=== PATIENT | female | born 1970 | race Caucasian/White ===

== ENCOUNTER → 2020-12-30 14:12 | Outpatient (CLI) | payer SELFPAY ==
[2020-12-30 15:22] LABS: Hematocrit 39.3 % (37-47); Hemoglobin 13.1 g/dL (12.0-15.0); Mean Corp Hgb Conc 33.3 g/dL (32-36); Mean Corpuscular Hgb 28.5 pg (27.0-32.0); Mean Corpuscular Volume 85.6 fL (81-99); Mean Platelet Vol. 9.3 fl (6.2-12.0); Platelet Count 332 K/mm3 (150-450); RBC Distribution Width CV 11.9 % (11.6-14.6); RBC Distribution Width SD 37.4 fl (35.1-43.9); Red Blood Count 4.59 M/mm3 (4.2-5.4); White Blood Count 8.2 K/mm3 (4.4-11.0)
[2020-12-30 15:43] LABS: T4 Free Direct 0.78 ng/dL (0.76-1.46); Thyroid Stim Hormone (TSH) 2.79 uIU/mL (0.358-3.74)
[2021-01-05 21:44] LABS: HPV APTIMA, High Risk Negative (Negative)
== END ==
PROVIDERS: Visit Provider Student in an Organized Health Care Education/Training Program
DX: N93.9 Abnormal uterine and vaginal bleeding, unspecified (principal); Z12.4 Encounter for screening for malignant neoplasm of cervix
CPT/HCPCS: 36415; 84439; 84443; 85027; 87624; 88175; G0145

== ENCOUNTER → 2021-02-06 12:28 | Outpatient (CLI) | payer SELFPAY ==
--- NOTE | 2021-02-06 | EMB_PTH ---
PATIENT: DERIK NEWSOME LOC: [facility] U#:[id number] AGE/SX: 54/F ROOM: RE02/06/[address]: Dr. Kelly Maciel, : 1970 BED: DIS: SPEC #: [id number] RECD: 02/06/21 13:52 STATUS: BRYANT HOMAR #: [id number] RACHEL: 02/06/21 00:[address]: Kelly Maciel DEPT: SURGICAL PATHOLOGY RECD BY: Claudy Sheehan Tissues: Endometrium, NOS Procedures: Surgery Specimen Level IV HEADER OPERATION: Endometrial biopsy PRE-OP DIAGNOSIS: N93.9 TISSUE SUBMITTED: Endometrial biopsy MICROSCOPIC DIAGNOSIS Endometrium, biopsy: Perimenstrual endometrium with glandular and stromal breakdown. AM:viet 02/07/2021 MICROSCOPIC DESCRIPTION Slides are reviewed. GROSS DESCRIPTION Received in fixative is one container labeled with the patient's name and designated endometrial biopsy. The specimen consists of multiple irregular and elongated fragments of red-aparicio soft tissue that in aggregate measure 2 x 2 x 0.2 cm. The specimen is totally submitted in one cassette. / AM:viet 02/06/21 TC:5 CPT: 36265
== END ==
PROVIDERS: Visit Provider Student in an Organized Health Care Education/Training Program
DX: N93.9 Abnormal uterine and vaginal bleeding, unspecified (principal)
CPT/HCPCS: 88305

== ENCOUNTER 2023-06-13 05:27 | Day surgery (SDC) | payer SELFPAY ==
--- NOTE | 2023-06-03 14:32 | PCM.HP.BLA ---
History and Physical Date of Admission: 06/13/23 ? HPI: The patient is a 52 year old female presenting for pre-operative visit. She is scheduled for LAVH with bilateral salpingectomy, for metromenorrhagia and intramural uterine fibroid on 06/13/23. Procedure discussed along with risks, benefits and complications. Other alternatives discussed for management. Consent form signed? Yes. ? ? PAST MEDICAL HISTORY PAST MEDICAL HISTORY Diagnosis Date ? 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 MVP (mitral valve prolapse) 02/25/2013 ? PTSD (post-traumatic stress disorder) ? ? Pulmonary hypertension (HCC) 02/25/2013 ? Uterine fibroid ? ? Uterine mass ? ? ? PAST SURGICAL HISTORY PAST SURGICAL HISTORY Procedure Laterality Date ? LIG/TRNSXJ FLP TUBE ABDL/VAG APPR UNI/BI ? 02/18/2011 ? Tubal ligation ? TONSILLECTOMY & ADENOIDECTOMY <AGE 14 ? CURRENT MEDICATIONS Current Outpatient Medications Medication Sig Dispense Refill ? megestrol (MEGACE) 40 mg tablet Take 40 mg by mouth as needed. ? ? ? buPROPion XL (WELLBUTRIN XL) 150 mg 24 hr tablet Take 150 mg by mouth once daily. ? ? ? FLUoxetine (PROZAC) 20 mg capsule Take 20 mg by mouth once daily. ? ? ? hydrOXYzine pamoate (VISTARIL) 25 mg capsule take 1 to 2 capsules by mouth at bedtime if needed ? ? ? prazosin (MINIPRESS) 1 mg cap Take 1 mg by mouth daily at bedtime. ? ? ? metoprolol succinate ER (TOPROL XL) 50 mg 24 hr tablet Take 1 tablet by mouth once daily. 90 tablet 3 ? No current facility-administered medications for this visit. ? ? ALLERGIES: Erythromycin and Penicillins ? PERSONAL HISTORY: SOCIAL HISTORY Social History ? Tobacco Use ? Smoking status: Never ? ? Passive exposure: Never ? Smokeless tobacco: Never Vaping Use ? Vaping Use: Never used Substance Use Topics ? Alcohol use: No ? Drug use: No ? FAMILY HISTORY: FAMILY HISTORY FAMILY HISTORY Problem Relation Age of Onset ? Heart Mother ? ? Living - age 68 - h/o MVP ? None Father ? ? Living - age 68 ? Heart Sister ? ? Two sisters with a history of palpitations ? None Sister ? ? Three healthy sisters ? None Brother ? ? Living - age 41 ? Seizures Brother ? ? Living - age 37 ? None Daughter ? ? 4 healthy daughters ? None Son ? ? 5 healthy sons ? ? REVIEW OF SYMPTOMS: GENERAL: denies fevers or chills ENDOCRINOLOGY: has not been on steroids Cardiology : denies palpitations or chest pain Respiratory: denies SOB or cough Hematology: denies history of prolonged bleeding or easy bruising or VTE Allergy: Denies history of personal or family history of allergy to anesthesia ? PHYSICAL EXAMINATION: ? VITALS: Last menstrual period 04/29/2023. ? GENERAL: The patient is well nourished, well hydrated in no acute distress. , The patient is oriented to time, place, and person. NECK: Supple. No lynphadenopathy, normal thyroid, no thyromegaly. LUNGS: Clear to auscultation bilaterally. no wheezes, rhonchi or rales HEART: Regular rate and rhythm, Normal heart sounds, and No murmurs or gallops ? PELVIC US done : Uterus Uterus: Visualized Uterus position: anteverted Uterus length 104 mm Uterus width 80 mm Uterus height 59 mm Uterus Vol 256.4 cm? Endometrial thickness, total 13.2 mm Uterine fibroid D1 45 mm Uterine fibroid D2 39 mm Uterine fibroid D3 37 mm Uterine fibroid mean 40.3 mm Uterine fibroid vol 34.000 cm? Uterine fibroids findings: Fundal Right Ovary Rt ovary: Not visualized Left Ovary Lt ovary: Visualized Lt ovary D1 22 mm Lt ovary D2 19 mm Lt ovary D3 20 mm Lt ovary Vol 4.4 cm? ? Pap smear up to date and EMB and pelvic US done at Dr. Trinity Villar's office 03/2023 ? IMPRESSION: metromenorrhagia, intramural uterine fibroid, dysmenorrhea ? PLAN: The risks/benefits/alternatives and personal involved for the planned LAVH with bilateral salpingectomy were reviewed with the patient. Her questions were answered to her satisfaction and she desires to proceed. Consent was signed. I reviewed with her postop instructions and expectations. ? ? I have reviewed and updated past medical and surgical history, medications and allergies Assessment & Plan Assessment/Plan (1) Menorrhagia with irregular cycle: (2) Intramural uterine fibroid: (3) Dysmenorrhea:
[2023-06-13] VITALS (16 sets, daily range): BP systolic 94–128; BP diastolic 50–79; PULSE 68–94; RESP 14–18; TEMP 36.4–37.2; O2SAT 93–99; BMI 41.8
--- NOTE | 2023-06-13 | HYST_PTH ---
PATIENT: DERIK NEWSOME LOC: [facility] [place] U#:[id number] AGE/SX: 52/F ROOM: RE06/13/[address]: Dr. Kathryn Hess MD : 1970 BED: DIS: 06/13/2023 SPEC #: [id number] RECD: 06/13/23 13:46 STATUS: BRYANT REGilbert #: [id number] RACHEL: 06/13/23 00:[address]: Kathryn Hess DEPT: SURGICAL PATHOLOGY RECD BY: Claudy Sheehan ENTERED: 06/13/23 13:46 SP TYPE: HYSTERECT OTHR DR: Chantel Castillo, MOBILE BATTERY TECHNICIAN-C Tissues: Uterus, NOS Procedures: Surgery Specimen Level V HEADER OPERATION: ERAS, hysterectomy, LAVH, bilateral salpingectomy PRE-OP DIAGNOSIS: Menorrhagia with irregular cycle, intermural uterine fibroid, dysmenorrhea TISSUE SUBMITTED: Uterus, cervix, bilateral fallopian tubes MICROSCOPIC DIAGNOSIS Uterus, cervix and bilateral fallopian tubes, hysterectomy and bilateral salpingectomy: Cervix - Chronic cystic cervicitis Endometrium - Proliferative endometrium Myometrium - Intramural and submucosal leiomyomas (0.7 and 5.0cm in diameter.) - Adenomyosis. Bilateral fallopian tubes- no pathologic diagnosis. DOLORES/ 06/14/2023 MICROSCOPIC DESCRIPTION Slides are reviewed. GROSS DESCRIPTION Received in fixative is one container labeled with the patient's name and designated uterus, cervix, bilateral fallopian tubes. The specimen consists of a hysterectomy specimen consisting of uterus with cervix and detached bilateral fallopian tubes. The uterus with cervix weighs 322 gm and measures 14.0 x 10.0 x 6.0 cm. The serosal surface is aparicio glistening. The ectocervical mucosa is unremarkable. The external os is oval and patulous in contour. The endocervical canal measures 4.0 cm in length and the endocervical mucosa aparicio glistening and unremarkable. Endometrial cavity is compressed to one side due to the presents of intramural to submucosal nodular mass and 7.0 cm in length and 2.5 cm in width. The endometrium is aparicio glistening and congested and hemorrhagic without any mass lesions and measures 0.1 cm in thickness. Sections of the uterine wall reveal two nodular masses, larger one intramural to submucosal in location measuring 5.0cm in diameter. Second mass is intramural in location and measures 0.7cm in diameter. Sections of these masses reveal aparicio whorled cut surfaces without areas of hemorrhage, necrosis or cystic degeneration. The uterine wall measures up to 3.0cm in thickness. Fallopian tubes are not identified as right or left and measures 4.0cm in length and 0.6cm in diameter and 5.0cm in length and 0.5cm in diameter. Sections reveal unremarkable cut surfaces. Pricing/Signage Team Member sections are submitted in 11 cassettes as follows: 1 - anterior cervix, 2 - posterior cervix, 3 & 4 - anterior uterine wall, 5 & 6 - posterior uterine wall, 7&8- Larger nodular mass, 9- smaller nodular mass, entirely submitted, 10- one fallopian tube, 11- second fallopian tube. SJ: 06/13/23 TC:1 CPT: 64506
[2023-06-13 06:28] LABS: Bedside Glucose 73 mg/dL (74-106)
[2023-06-13] MEDS: Clindamycin 900 MG/50 ML BAG 75 MG IV (06:33)
[2023-06-13] MEDS: Lactated Ringers 1,000 ML 40 ML IV (06:33)
[2023-06-13] MEDS: Enoxaparin 40 MG/0.4 ML Syringe SC (06:34)
[2023-06-13] MEDS: Acetaminophen 500 MG Tablet 1000 MG PO (06:34)
[2023-06-13] MEDS: Celecoxib 200 MG Capsule 400 MG PO (06:34)
[2023-06-13] MEDS: Gabapentin 600 MG Tablet PO (06:34)
[2023-06-13 06:51] LABS: Anion Gap 7 (5-15); BUN 9 mg/dL (7-18); BUN/Creat Ratio 11.4 RATIO (10-20); Calcium,Total 9.1 mg/dL (8.5-10.1); Chloride 107 mmol/L (98-107); Creatinine, Serum 0.79 mg/dL (0.55-1.02); EST Glomerular Filtration Rate 82 mL/min (>60); Est Glom Filt Rate - Afr Amer 99 mL/min (>60); Estimated Creatinine Clearance 99.87 ml/min; Glucose 80 mg/dL (74-106); Magnesium 2.1 mg/dL (1.6-2.6); Potassium 3.9 mmol/L (3.5-5.1); Sodium Level 141 mmol/L (136-145)
[2023-06-13] MEDS: Magnesium 1 GM over 15 mins IV (07:27)
[2023-06-13] MEDS: Gentamicin IV 260 MG in Dextrose 5%-Water (50mL Bag) 50 ML 100 MG IVPB (07:46)
--- NOTE | 2023-06-13 07:59 | PCM.DC ---
Discharge Instructions Diet Discharge Diet: Light diet - advance as tolerated Activity Discharge Activity: May Shower and May Take a Tub Bath (in 6 weeks) May resume sexual activity in: 6-8 weeks and - (Nothing in your vagina for 6 weeks. No vaginal or anal intercourse for 6-8 weeks) Lifting Restrictions: 15 lbs for 6 weeks Dressing / Incision Call your doctor if your incision/area has: Continuous Slow Oozing, Sudden Increased Bleeding and Foul Smelling Discharge Call your doctor if you observe: Using more than 1 pad per hour Cleanse incision/area with: Soap & Water and - (Your incisions have skin glue, it can get wet, leave the glue on until it falls off. ) Follow Up Care Please Follow Up With: Kathryn Hess MD When: With my office in 1-2 and 6 weeks or as needed. [phone]. Call with any questions or concerns Test Results: Test results from this visit will be discussed in further detail at your follow-up appointment, if applicable. Discharge Plan Admission Primary Reason for Your Visit: Hysterectomy Attending Provider: Kathryn Hess Primary Care Provider: Chantel Castillo Discharge Orders/Prescriptions Prescriptions: New ibuprofen [ibuprofen] 600 mg tablet 600 mg PO Q6H PRN (Reason: Pain) Qty: 60 1RF oxycodone 5 mg tablet 5 mg PO Q6H PRN PRN (Reason: severe pain) 7 Days Qty: 20 0RF Continued bupropion HCl 100 mg tablet 150 mg PO DAILY fluoxetine 20 mg capsule 40 mg PO DAILY prazosin 1 mg capsule 1 mg PO QHS hydroxyzine pamoate 25 mg capsule 25 mg PO DAILY PRN PRN (Reason: anxiety) Adrenal Optimizer 50-125-12.5 mg tablet 2 tab PO DAILY NINJA RED 1 packet PO DAILY metoprolol succinate 50 mg tablet extended release 24 hr 50 mg PO QHS Referrals / Follow Up: Chantel Castillo, LOAN REPRESENTATIVE-C [Primary Care Provider] - Disposition Disposition (needs filled in before D/C Order can be placed): Home, Self Care
[2023-06-13] MEDS: Bupivacaine Mpf 0.5% 30 ML VIAL (08:13)
[2023-06-13] MEDS: Lidocaine 1%/Epi 1:200 (30ml) 30 ML AMPUL (08:44)
[2023-06-13] MEDS: dexAMETHasone 4 MG/ML Vial 8 MG IV (08:51)
[2023-06-13] MEDS: Ondansetron 4 MG/2 ML Vial IV (09:35)
--- NOTE | 2023-06-13 09:42 | PCM.OPRPT ---
Problems Associated Problem List Diagnoses (1) Dysmenorrhea: (2) Intramural uterine fibroid: (3) Menorrhagia with irregular cycle: Report of Operation Date of Procedure: 06/13/23 Pre-Operative Diagnosis: menorrhagia, dysmenorrhea, intramural uterine fibroid Post-Operative Diagnosis: same Surgery/Procedure Performed:: LAVH, bilateral salpingectomy Description of Surgical Findings:: Enlarged boggy uterus, normal cervix, ovaries and vagina. Large intramural fibroid present. Fallopian tubes divided previously. 2 filshie clips removed from posterior cul de sac Surgeon: Kathryn Hess instructor of education: Maria Dolores Vazquez instructor of education: Ashley Gomez MS4 Type of Anesthesia: General Anesthesiologist: Leslie Hanley Special Medications: none Specimen's removed: uterus, cervix, bilateral fallopian tube remnants Drains: none Estimated Blood Loss (mL): 100 Fluids Replaced: 1400 Description of Procedure: The patient was taken to the operating room where she was prepped and draped in the dorsal lithotomy position. Her arms were tucked to the side and padded and her legs were placed in the yellowfin stirrups. Care was taken to ensure that she was placed in a neurologically safe and neutral position. A weighted speculum was placed in the vagina and the anterior lip of the cervix was grasped with a single-tooth tenaculum. The uterus sounded to 10 centimeters. The [ZUMI] uterine manipulator was placed and secured. The Sanchez catheter was placed to straight drain. Attention was turned to the abdominal portion of the case. Before skin incisions were made they were infiltrated with 0.5% Marcaine solution for local anesthetic. A 5 mm intraumbilical incision was made and while tenting the anterior abdominal wall up with towel clamps a 5 mm blade less trocar and sleeve were advanced directly into the peritoneal cavity with the Visiport. Peritoneal placement was confirmed with the laparoscope the pneumoperitoneum was created, and the underlying abdominal contents were intact. The patient was placed in Trendelenburg and the above findings were noted. Right and left lateral 5 mm trocars were placed under direct visualization without difficulty. There is evidence of a previous tubal ligation. The distal portions of the tube were removed. [The antimesenteric portion of the tube was clamped sealed and transected serially on both sides with the LigaSure device.] The round ligaments were clamped sealed and transected and a window was made in the peritoneum. The utero-ovarian ligaments were then clamped, sealed and transected with the LigaSure device and the pedicles were hemostatic The bladder flap was dissected down with the LigaSure device and blunt dissection and the uterine arteries were then skeletonized. The uterine arteries were clamped, sealed and transected on both sides with the LigaSure device. At this point the pedicles were all examined and found to be hemostatic. Attention was turned to the vaginal portion of the case. 1% lidocaine with dilute epinephrine solution was used to infiltrate the anterior vaginal epithelium around the cervix. The anterior cul-de-sac was entered with sharp and blunt dissection. The posterior cul-de-sac was entered with sharp dissection. The posterior peritoneum was secured to the vaginal cuff with a suture. The uterosacral ligaments were clamped, transected and suture-ligated. The next pedicle contained the anterior peritoneum and part of the cardinal ligament. The pedicle was was clamped with a Colt clamp, transected and suture-ligated. Hemostasis was noted. There was still small amount of peritoneum on both sides and this was clamped, transected and suture-ligated. The uterus was brought through the colpotomy incision. At this point, the pedicles were all examined and hemostasis was assured. [A [id number] was needed in the midline and the vaginal cuff between the uterosacrals to tack the peritoneum down to the posterior vaginal wall. ] The vaginal cuff was then closed in a horizontal fashion with interrupted 0 Vicryl ciywas-[id number]-lcmde sutures. Care was taken to secure the vagina to the uterosacral ligaments. A sponge stick was placed in the vagina. The laparoscope was reinserted into the abdomen and the pneumoperitoneum was re-created. The pedicles were reexamined and found to be hemostatic. The vaginal cuff was hemostatic. Both ureters were seen peristalsing at the level of the pelvic brim. [Hemoblast was placed over the peritoneal edges and no active bleeding was noted through the hemoblast.] The right and left lateral ports were taken out and the sites were hemostatic. The pneumoperitoneum was released and even under low pressure there was no bleeding of any of the pedicles are vaginal cuff. The umbilical port was removed. The umbilical skin incisions were closed with Monocryl suture and skin glue by Dr. Vazquez and the student. The vaginal instruments were removed by me and a vaginal sweep was completed by Dr. Vazquez. The surgery was performed by me with assistance other than the portions dictated as above. There were no qualified residents available for this procedure. All sponge lap and needle counts were correct and the patient was transferred to the recovery room in stable condition. There were no qualified residents available for the surgery. Dr. Vazquez provided camera guidance, uterine manipulation, tissue retraction and assistance with suturing during the case. Grafts/Implants Used: none Procedure Start Time: 08:05 Procedure Stop Time: 09:47 Complications none Admit VTE Documentation VTE Present on Admission: No VTE Mechan Device Prophylaxis: SCD's VTE Pharm Prophylaxis ordered?: Yes
[2023-06-13] MEDS: Ketorolac 30 MG/ML Syringe IV (10:55)
[2023-06-13] MEDS: Lactated Ringers @ 70 MLS/HR 70 ML IV (10:55)
[2023-06-13] MEDS: oxyCODONE 5 MG Tablet PO (13:49)
[2023-06-13 22:00] LABS: Internal QC Validated? YES +Cl - CLEAR BKGD; Pregnancy, Urine Negative Negative
== END 2023-06-13 17:09 | disposition home or self-care (01) ==
LOC: SDC 05:30 → AC 05:31
PROVIDERS: Anesthesiology; PCP Nurse Practitioner Family; Referring Provider Obstetrics & Gynecology; Visit Provider Obstetrics & Gynecology
PROC: 0UT9FZZ Resection of Uterus, Via Natural or Artificial Opening With Percutaneous Endoscopic Assistance (ICD-10-PCS; CPT 58554; principal; 2023-06-13 07:05)
DX: D25.1 Intramural leiomyoma of uterus (principal); I27.20 Pulmonary hypertension, unspecified; E11.9 Type 2 diabetes mellitus without complications; N94.6 Dysmenorrhea, unspecified; Z98.51 Tubal ligation status; N72 Inflammatory disease of cervix uteri; D25.0 Submucous leiomyoma of uterus; N80.03 Adenomyosis of the uterus; Z79.899 Other long term (current) drug therapy
CPT/HCPCS: 58554; 00944; 80048; 81025; 82962; 83735; 86850; 86900; 86901; 88307; J7120; J2405; J3475